=== PATIENT | male | born 1995 | race Two or more races ===

== ENCOUNTER 2016-08-10 07:26 | Emergency (ER) | payer MEDICAID ==
[~2016-08-10] VITALS: Ht 180.3 cm; Wt 74.8 kg
[2016-08-10 07:32] VITALS: BP 123/72
[2016-08-10] MEDS ORDERED: methylPREDNISolone SOD SUCC 125 MG/2 ML VL IM ONE (08:00)
[2016-08-10] MEDS ORDERED: cefTRIAXone SOD 1,000 MG VL IM ONE (08:00)
== END 2016-08-10 08:47 | disposition home or self-care (01) ==
LOC: ER 07:26
DX: J03.90 Acute tonsillitis, unspecified (principal); H66.93 Otitis media, unspecified, bilateral; Z88.0 Allergy status to penicillin
CPT/HCPCS: 96372; 99284; J0696; J2930

== ENCOUNTER 2016-09-14 07:30 | Emergency (ER) | payer MEDICAID ==
[~2016-09-14] VITALS: Ht 177.8 cm; Wt 74.8 kg
[2016-09-14 07:47] VITALS: BP 131/78
== END 2016-09-14 08:20 | disposition home or self-care (01) ==
LOC: ER 07:32
DX: H66.91 Otitis media, unspecified, right ear (principal); Z88.0 Allergy status to penicillin

== ENCOUNTER 2018-07-15 02:56 | Emergency (ER) | payer MEDICAID ==
[~2018-07-15] VITALS: Ht 177.8 cm; Wt 77.1 kg
[2018-07-15 03:26] VITALS: BP 151/73
== END 2018-07-15 05:58 | disposition home or self-care (01) ==
LOC: ER 02:58
DX: J06.9 Acute upper respiratory infection, unspecified (principal); J02.9 Acute pharyngitis, unspecified

== ENCOUNTER 2019-10-03 10:01 | Emergency (ER) | payer MEDICAID ==
[~2019-10-03] VITALS: Ht 172.7 cm; Wt 37.2 kg
[2019-10-03 10:32] LABS: Basophils # (auto) 0 10 ^3/uL (0-0.2); Basophils % (auto) 0.5 % (0.0-2.0); Eosinophils # (auto) 0.1 10 ^3/uL (0-0.8); Eosinophils % (auto) 1.1 % (0.0-7.0); Hematocrit 43.2 % (41.0-53.0); Hemoglobin 14.4 g/dL (13.5-17.5); Lymphocytes # (auto) 1.9 10 ^3/uL (0.4-5.4); Lymphocytes % (auto) 36.8 % (10.0-50.0); Mean Corpuscular Hemoglobin 28.9 pg (28.0-32.0); Mean Corpuscular Hgb Conc. 33.4 g/dL (32.0-36.0); Mean Corpuscular Volume 86.5 fL (80.0-100.0); Monocytes # (auto) 0.4 10 ^3/uL (0-1.3); Neutrophils # (auto) 2.8 10 ^3/uL (1.6-8.6); Neutrophils % (auto) 54.6 % (37.0-80.0); Nucleated Red Blood Cells % 0.2 %; Platelet Count (auto) 140 10^3/uL (140-450); Red Blood Cells 4.99 10^6/uL (4.5-5.90); Red Cell Distribution Width 12.8 % (11.8-14.3)
[2019-10-03 10:52] LABS: Albumin 4.1 g/dL (3.4-5.0); Anion Gap 3 (5-15); Blood Urea Nitrogen 8 mg/dL (7-18); Calcium 8.8 mg/dL (8.5-10.1); Carbon Dioxide 28 mmol/L (21-32); Chloride 108 mmol/L (98-107); Glucose 93 mg/dL (74-106); Magnesium 2.3 mg/dL (1.6-2.6); Potassium 3.9 mmol/L (3.5-5.1); Sodium 139 mmol/L (136-145)
[2019-10-03 10:57] LABS: Alanine Aminotransferase 95 U/L (16-61); Alkaline Phosphatase 73 U/L (45-117); Aspartate Aminotransferase 41 U/L (15-37); BUN/Creatinine Ratio 8.9; Bilirubin, Total 0.7 mg/dL (0.2-1.0); GFR African American 133 mL/min; GFR Non-African American 110 mL/min; Total Protein 7.5 g/dL (6.4-8.2)
[2019-10-03 12:14] VITALS: BP 115/71
== END 2019-10-03 12:16 | disposition home or self-care (01) ==
LOC: ER 10:01
DX: R42 Dizziness and giddiness (principal); R51 Headache
CPT/HCPCS: 36415; 70450; 80053; 83735; 84484; 85025; 93005; 99285; J7030

== ENCOUNTER 2020-01-05 15:44 | Emergency (ER) | payer MEDICAID ==
[~2020-01-05] VITALS: Ht 180.3 cm; Wt 79.4 kg
[2020-01-05 16:15] VITALS: BP 136/72
== END 2020-01-05 16:53 | disposition home or self-care (01) ==
LOC: ER 15:44
DX: S06.0X0A Concussion without loss of consciousness, initial encounter (principal); M62.838 Other muscle spasm; Y04.0XXA Assault by unarmed brawl or fight, initial encounter; Y93.89 Activity, other specified; Y92.89 Other specified places as the place of occurrence of the external cause; Y99.8 Other external cause status
CPT/HCPCS: 70450; 72125

== ENCOUNTER 2020-01-06 19:22 | Emergency (ER) | payer MEDICAID ==
[~2020-01-06] VITALS: Ht 180.3 cm; Wt 79.4 kg
[2020-01-06 19:55] VITALS: BP 145/72
[2020-01-06 20:39] LABS: Basophils # (auto) 0 10 ^3/uL (0-0.2); Basophils % (auto) 0.2 % (0.0-2.0); Eosinophils # (auto) 0 10 ^3/uL (0-0.8); Eosinophils % (auto) 0.2 % (0.0-7.0); Hematocrit 42.8 % (41.0-53.0); Hemoglobin 14.2 g/dL (13.5-17.5); Lymphocytes # (auto) 2.7 10 ^3/uL (0.4-5.4); Lymphocytes % (auto) 37.6 % (10.0-50.0); Mean Corpuscular Hemoglobin 28.7 pg (28.0-32.0); Mean Corpuscular Hgb Conc. 33.2 g/dL (32.0-36.0); Mean Corpuscular Volume 86.6 fL (80.0-100.0); Monocytes # (auto) 0.5 10 ^3/uL (0-1.3); Monocytes % (auto) 7.2 % (0.0-12.0); Neutrophils % (auto) 54.8 % (37.0-80.0); Nucleated Red Blood Cells % 0.1 %; Platelet Count (auto) 169 10^3/uL (140-450); Red Blood Cells 4.94 10^6/uL (4.5-5.90); Red Cell Distribution Width 13.1 % (11.8-14.3); White Blood Cell 7.3 10^3/uL (4.4-10.8)
[2020-01-06 20:57] LABS: Anion Gap 2 (5-15); Blood Urea Nitrogen 15 mg/dL (7-18); Calcium 8.4 mg/dL (8.5-10.1); Carbon Dioxide 30 mmol/L (21-32); Chloride 108 mmol/L (98-107); Glucose 100 mg/dL (74-106); Potassium 3.3 mmol/L (3.5-5.1); Sodium 140 mmol/L (136-145)
[2020-01-06 21:04] LABS: Alanine Aminotransferase 56 U/L (16-61); Alkaline Phosphatase 68 U/L (45-117); Aspartate Aminotransferase 36 U/L (15-37); BUN/Creatinine Ratio 12.7; Bilirubin, Total 0.7 mg/dL (0.2-1.0); GFR African American 98 mL/min; GFR Non-African American 81 mL/min; Total Protein 7.3 g/dL (6.4-8.2)
[2020-01-06] MEDS ORDERED: POTASSIUM EFFERVESENT TAB 25 MEQ PO ONE (21:15)
== END 2020-01-06 21:30 | disposition home or self-care (01) ==
LOC: ER 19:22
DX: R07.89 Other chest pain (principal); F41.9 Anxiety disorder, unspecified; E87.6 Hypokalemia; Z88.0 Allergy status to penicillin
CPT/HCPCS: 36415; 71045; 80053; 84484; 85025; 93005

== ENCOUNTER 2022-09-09 15:50 | Emergency (ER) | payer MEDICAID ==
[~2022-09-09] VITALS: Ht 182.9 cm; Wt 104.5 kg
[2022-09-09] MEDS ORDERED: MORPHINE SULFATE 4 MG/ML SYR/VIAL IV ONE (16:15)
[2022-09-09] MEDS ORDERED: SODIUM CHLORIDE 0.9% 1,000 ML IVB ONE (16:15)
[2022-09-09] MEDS ORDERED: ONDANSETRON HCL 4 MG/2 ML VIAL IV ONE (16:15)
[2022-09-09 16:28] LABS: Basophils # (auto) 0 10 ^3/uL (0-0.2); Basophils % (auto) 0.3 % (0.0-2.0); Eosinophils # (auto) 0 10 ^3/uL (0-0.8); Eosinophils % (auto) 0.5 % (0.0-7.0); Hematocrit 44.6 % (41.0-53.0); Hemoglobin 14.5 g/dL (13.5-17.5); Lymphocytes # (auto) 2.1 10 ^3/uL (0.4-5.4); Lymphocytes % (auto) 32.6 % (10.0-50.0); Mean Corpuscular Hemoglobin 27.4 pg (28.0-32.0); Mean Corpuscular Hgb Conc. 32.5 g/dL (32.0-36.0); Mean Corpuscular Volume 84.2 fL (80.0-100.0); Monocytes # (auto) 0.3 10 ^3/uL (0-1.3); Monocytes % (auto) 4.4 % (0.0-12.0); Neutrophils % (auto) 62.2 % (37.0-80.0); Nucleated Red Blood Cells % 0.3 %; Red Cell Distribution Width 12.8 % (11.8-14.3); White Blood Cell 6.4 10^3/uL (4.4-10.8)
[2022-09-09 16:45] LABS: INR 1.05 (0.9-1.15); Partial Thromboplastin Time 26.9 sec (24.6-33.4)
[2022-09-09 16:49] LABS: Albumin 4.3 g/dL (3.4-5.0); Calcium 9.6 mg/dL (8.5-10.1); Magnesium 1.9 mg/dL (1.6-2.6); Potassium 4.2 mmol/L (3.5-5.1)
[2022-09-09 16:52] LABS: BUN/Creatinine Ratio 11.6 (10.0-20.0); Bilirubin, Total 0.6 mg/dL (0.2-1.0); Total Protein 7.6 g/dL (6.4-8.2)
[2022-09-09] MEDS ORDERED: ONDANSETRON HCL 4 MG/2 ML VIAL IM ONE (17:45)
[2022-09-09] MEDS ORDERED: MORPHINE SULFATE INJ 2 MG/ml SYRG IM ONE (17:45)
[2022-09-09 17:53] VITALS: BP 130/76
[2022-09-09] MEDS ORDERED: IBUPROFEN 600 MG TAB PO ONE (18:00)
[2022-09-09] MEDS ORDERED: MECLIZINE HCL 25 MG TAB PO ONE (18:45)
[2022-09-09] MEDS ORDERED: DICL75TA4 PO (19:21)
[2022-09-09] MEDS ORDERED: MECL1TAB42 PO (19:21)
== END 2022-09-09 19:50 | disposition home or self-care (01) ==
LOC: EDBD 15:50 → ER 15:50 → EDUNIT# 15:50 → ER 19:46
DX: R51.9 Headache, unspecified (principal); R42 Dizziness and giddiness; R06.02 Shortness of breath; Z79.01 Long term (current) use of anticoagulants; Z79.899 Other long term (current) drug therapy
CPT/HCPCS: 36415; 70450; 71045; 80053; 83735; 83880; 84484; 85025; 85610; 85730; 93005; 96360; 96361; 99285; J7030; J8597